=== PATIENT | female | born 1955 | race Caucasian/White ===

== ENCOUNTER 2016-09-03 07:30 | Inpatient (IN) ==
[2016-08-28 12:05] LABS: Basophils # (Auto) 0 K/mcL (0.0-0.3); Basophils % (Auto) 0.6 % (0.0-2.0); Eosinophils # (Auto) 0.1 K/mcL (0.0-0.7); Eosinophils % (Auto) 2.1 % (0.0-7.0); Granulocytes % (Auto) 58.1 % (38.0-78.0); Lymphocytes # (Auto) 1.3 K/mcL (1.5-4.8); Lymphocytes % (Auto) 27.8 % (15.5-49.0); Mean Cell Volume 92.3 fL (80.0-100.0); Mean Corpuscular HGB Conc 32.1 g/dL (31.0-36.0); Mean Corpuscular Hemoglobin 29.6 pg (26.0-34.0); Monocytes # (Auto) 0.5 K/mcL (0.1-0.9); Monocytes % (Auto) 11.4 % (1.0-9.0); Platelet Count 277 K/mcL (140-440); RBC 4.68 M/mcL (4.00-5.20); Red Cell Distribution Width 14.4 % (11.5-14.5)
[2016-08-28 12:06] LABS: Blood Urea Nitrogen 10 mg/dl (6-20)
[2016-08-28 12:07] LABS: Appearance,Urine CLEAR; Bilirubin,Urine NEG (NEG); Color,Urine STRAW; Glucose,Urine (UA) NEGATIVE (NEG); Leukocyte Esterase,Urine NEG /uL (NEG); Nitrate,Urine NEG (NEG); Protein,Urine NEG (NEG); Specific Gravity,Urine 1.004 (1.000-1.035); Urine Blood NEG mg/dL (<0.03); Urobilinogen,Urine NEG (NEG)
[~2016-09-03 07:30] MED LIST: CELECOXIB 200 MG CAPSULE PO SCH; KETOROLAC 30 MG, ROPIVACAINE HCL/PF 49.5 ML, EPINEPHrine 0.5 MG, 0.9 % SODIUM CHLORIDE ... IJ SCH; PREGABALIN 150 MG CAPSULE PO SCH; ceFAZolin 1 GM VIAL IV SCH; oxyCODONE 10 MG TAB.ER.12H PO SCH
[2016-09-03] MEDS ORDERED: TRANEXAMIC ACID 1,000 MG/10 ML VIAL IV ONE ×2 (13:45→15:16)
[2016-09-03] MEDS ORDERED: fentaNYL 100 MCG/2 ML VIAL IV ONE (13:45)
[2016-09-03] MEDS ORDERED: PROPOFOL 200 MG/20 ML VIAL IV ONE (13:45)
[2016-09-03] MEDS ORDERED: LIDOCAINE HCL/PF 100 MG/5 ML SYRINGE IV ONE (13:45)
[2016-09-03] MEDS ORDERED: ROPIVACAINE HCL/PF 30 ML VIAL IJ ONE (13:45)
[2016-09-03] MEDS ORDERED: ONDANSETRON 4 MG/2 ML VIAL IV ONE (13:45)
[2016-09-03] MEDS ORDERED: MIDAZOLAM 2 MG/2 ML VIAL IV ONE (13:45)
[2016-09-03] MEDS ORDERED: DEXAMETHASONE 10 MG/ML VIAL IV ONE (13:45)
[2016-09-03] MEDS ORDERED: IPRATROPIUM/ALBUTEROL 3 ML AMPUL.NEB NEB PRN (14:57)
[2016-09-03] MEDS ORDERED: ePHEDrine 50 MG/ML AMPUL IV PRN (14:57)
[2016-09-03] MEDS ORDERED: ATROPINE SULFATE 0.4 MG/ML VIAL IV PRN (14:57)
[2016-09-03] MEDS ORDERED: METOPROLOL TARTRATE 5 MG/5 ML VIAL IV PRN (14:57)
[2016-09-03] MEDS ORDERED: fentaNYL 100 MCG/2 ML VIAL IV PRN (14:57)
[2016-09-03] MEDS ORDERED: NALOXONE HCL 0.4 MG/ML VIAL IV PRN (14:57)
[2016-09-03] MEDS ORDERED: HYDROmorphone 2 MG/ML SYRINGE IV PRN (14:57)
[2016-09-03] MEDS ORDERED: diphenhydrAMINE 50 MG/ML VIAL IV PRN (14:57)
[2016-09-03] MEDS ORDERED: FLUMAZENIL 0.1 MG/ML ML IV PRN (14:57)
[2016-09-03] MEDS ORDERED: ONDANSETRON 4 MG/2 ML VIAL IV PRN ×2 (14:57→15:16)
[2016-09-03] MEDS ORDERED: BENZOCAINE/MENTHOL 1 LOZENGE PO PRN ×2 (14:57→15:16)
[2016-09-03] MEDS ORDERED: MEPERIDINE 25 MG/ML SYRINGE IV PRN (14:57)
[2016-09-03] MEDS ORDERED: METHOCARBAMOL 1,000 MG/10 ML VIAL IV PRN (14:57)
[2016-09-03] MEDS ORDERED: LACTATED RINGERS 1,000 ML IV SCH (15:00)
[2016-09-03] MEDS ORDERED: FLEETS ADULT ENEMA PR PRN (15:16)
[2016-09-03] MEDS ORDERED: BISACODYL 10 MG SUPP.RECT PR PRN (15:16)
[2016-09-03] MEDS ORDERED: MAGNESIUM HYDROXIDE 30 ML ORAL.SUSP PO PRN (15:16)
[2016-09-03] MEDS ORDERED: POLYETHYLENE GLYCOL 3350 17 GM PACKET PO PRN (15:16)
--- NOTE | 2016-09-03 15:27 | Brief Operative Note ---
Date of procedure: 09/03/16 Pre-op diagnosis: Left knee DJD Post-op diagnosis: same Procedure: Left TKA Grafts/Implants: Yes (Dusty Triathlon CR 2 femur, 2 tibia, 9 insert, 31 patella) Anesthesia: spinal, GLMA Findings: above Complications: none Surgeon: Bairon Sharma Sailing Master: Dimitrios Parikh Estimated blood loss (cc): 30 Specimens Removed/Pathology: none sent Condition: stable Disposition: PACU
--- NOTE | 2016-09-03 16:10 | XRay Report ---
CLINICAL INFORMATION: Postop total knee prostheses COMPARISON: None. FINDINGS: Total hip prostheses is anatomically aligned. There are no osseous abnormalities. Periarticular gas and soft tissue density as expected. IMPRESSION: Negative Interpreted and Authenticated by: Richie Cordova 09/03/16
[2016-09-03] MEDS: 0.9 % SODIUM CHLORIDE 1,000 ML IV SCH (17:11)
[2016-09-03] MEDS: KETOROLAC 15 MG/ML VIAL IV SCH (17:23)
[2016-09-03] MEDS ORDERED: SENNOSIDES 1 TABLET PO SCH (21:00)
[2016-09-03] MEDS: ceFAZolin 1 GM VIAL IV SCH (21:32)
[2016-09-03] MEDS: DOCUSATE SODIUM 100 MG CAPSULE PO SCH (21:36)
[2016-09-03] MEDS: 0.9 % SODIUM CHLORIDE 10 ML SYRINGE IV SCH (22:09)
[2016-09-04] MEDS: KETOROLAC 15 MG/ML VIAL IV SCH ×2 (00:05→05:46)
[2016-09-04] MEDS: ASPIRIN 325 MG ENTERIC COATED TABLET PO SCH ×2 (00:41→08:46)
[2016-09-04] MEDS: HYDROcodone/APAP 5/325MG TABLET PO PRN ×2 (00:42→08:33)
[2016-09-04] MEDS: 0.9 % SODIUM CHLORIDE 1,000 ML IV SCH ×2 (00:43→05:46)
[2016-09-04] MEDS: ceFAZolin 1 GM VIAL IV SCH (05:46)
[2016-09-04] MEDS: 0.9 % SODIUM CHLORIDE 10 ML SYRINGE IV SCH (06:10)
--- NOTE | 2016-09-04 08:00 | Discharge Summary ---
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 Chief Complaint: [] Discharge date: 09/04/16 Hospitalization Hospital course: Pt admitted for total knee arthroplasty. After procedure pt was transferred to floor for iv pain meds. abx, and PT. pt discharged post-op day 1. Discharge diagnosis: L knee osteoarthrosis Exam - Exam Clean and dry: Yes Weight bearing status: as tolerated Ortho Discharge - TKA - Patient Instructions Diet: Regular Diet Activity: activity as tolerated Total Knee Protocol: For Total Knee: Start ROM SERA with stationary bike or rocking chair. Work on gaining full extension of knee. Posterior dislocation precautions provided. Hip abductor strengthening and gait training instructions provided. Apply Cryocuff as instructed. Dressing Care: May shower in 2 days - Follow Up Plan Disposition: Home, Self-Care Prognosis: Good Rehab Potential: Good Overall status at discharge: patient is progressing back to baseline - Orders For Discharge Prescriptions: Aspirin [Ecotrin] 325 mg PO BID #60 tab.ec HYDROcodone/APAP 5/325MG [[place] 5/325Mg] 1 tab PO Q4HP PRN #60 tablet PRN Reason: Pain Pending Studies Resuscitation Status Full Code Diet Regular Diet Start ThuSep 03 Dinner Acetaminophen/Hydrocodone Bitart ([place] 5/325mg) 0 tab PO Q4HP PRN PRN Reason: Pain Last Admin: 09/04/16 00:42 Dose: 0.5 tab Aspirin (Ecotrin) 325 mg PO BID [facility] Last Admin: 09/04/16 00:41 Dose: 325 mg Docusate Sodium (Colace) 100 mg PO BID [facility] Last Admin: 09/03/16 21:36 Dose: Not Given Sodium Chloride (Sodium Chloride 0.9%) 1,000 mls @ 75 mls/hr IV .[id number] [facility] Last Admin: 09/04/16 05:46 Dose: Not Given Admin: 09/04/16 00:43 Dose: 75 mls/hr Infusion: 09/04/16 00:43 Dose: 75 mls/hr Admin: 09/03/16 17:11 Dose: 75 mls/hr Ketorolac Tromethamine (Toradol) 15 mg IV Q6 [facility] Stop: 09/05/16 12:01 Last Admin: 09/04/16 05:46 Dose: 15 mg Admin: 09/04/16 00:05 Dose: 15 mg Admin: 09/03/16 17:23 Dose: 15 mg Morphine Sulfate (Morphine) 0 mg IV Q1HP PRN PRN Reason: Pain Last Admin: 09/03/16 18:09 Dose: 1 mg Admin: 09/03/16 17:28 Dose: 0.5 mg Ondansetron HCl (Zofran) 4 mg IV Q4HP PRN PRN Reason: Nausea And Vomiting Last Admin: 09/03/16 21:40 Dose: 4 mg Senna (Senokot) 2 tab PO HS [facility] Last Admin: 09/03/16 21:36 Dose: Not Given Sodium Chloride (Saline Flush) 10 ml IV Q8 [facility] Last Admin: 09/04/16 06:10 Dose: Not Given Admin: 09/03/16 22:09 Dose: 10 ml Shift Summary 09/04/16 05:12 Shift Summary by Cecily Nunez Addendum entered by Cecily Nunez RN 09/04/16 05:17: Pt is voiding adequate amounts in the bathroom. Original Note: Had Left knee replacement. Hx of passing out from overmedication. For first part of shift, she was really drowsy with dizziness and nausea. SBP did go as low as 88 but after laying flat she maintained in the 90's. Received zofran once for nausea after getting up to the commode to void. By about 2300, pt was more awake, dizziness has decreased significantly and nausea was mostly gone. She was able to get up to commode without much complaint and after she ate some did take 1/2 tab of hydrocodone 5mg without any ill effects. She got up again this am and ambulated to the bathroom and out in zamorano without any difficulties. She has been in the CPM all night at 45 degrees, she finds that it helps with the pain and requests to stay in it. Up with minimal assist and FWW. Alert and oriented, hopes to get to go home today. Initialized on 09/04/16 05:12 - END OF NOTE
[2016-09-04] MEDS: DOCUSATE SODIUM 100 MG CAPSULE PO SCH (08:46)
[2016-09-04] MEDS ORDERED: LOSARTAN 25 MG TABLET PO SCH (09:00)
[2016-09-04] MEDS ORDERED: SPIRONOLACTONE 25 MG TABLET PO SCH (09:00)
--- NOTE | 2016-09-04 09:43 | Operative Note ---
DATE OF OPERATION: 09/03/2016 PREOPERATIVE DIAGNOSIS: Left knee advanced degenerative joint disease. POSTOPERATIVE DIAGNOSIS: Left knee advanced degenerative joint disease. PROCEDURE PERFORMED: Left total knee arthroplasty using a Dusty Triathlon cruciate retaining size 2 femoral component, size 2 tibial baseplate, a 9 mm X3 tibial insert with a 31 mm patellar button. SURGEON: Bairon Sharma MD. PLANT MECHANIC: Nazario Parikh PA-C. ANESTHESIA: Spinal plus general. DRAINS: None. SPECIMENS: Bone cuts, which were discarded. BLOOD LOSS: 50 mL. COMPLICATIONS: None. POSTOPERATIVE CONDITION: Stable. INDICATIONS FOR SURGERY: This is a 61-year-old female who over a year ago had undergone a right total knee arthroplasty by me and was pleased with her outcome. She had progressive worsening left knee pain with x-ray showing [id number] arthrosis. She elected to proceed with surgery on the left. FINDINGS AT SURGERY: She did have [id number] medial compartment osteoarthritis. Post implantation showed good overall limb alignment, patellar tracking, and joint stability. PROCEDURE IN DETAIL: The patient had been seen preoperatively. Informed consent had been obtained after discussion of risks and benefits of surgery. Risks including, but not limited to, bleeding, possibly requiring transfusion; infection, possibly requiring implant removal and prolonged IV antibiotics; injury to nerves, blood vessels or other surrounding structures; anesthetic risks; incomplete or no resolution of symptoms; stiffness, pain, clunking, swelling, weakness; DVT and pulmonary embolus risks; and the possibility of needing further surgery. She understood these risks and wished to proceed. Correct operative site was marked in preoperative holding, and the patient was taken to the operating room. General anesthesia was induced. Left lower extremity was carefully prepped and draped in normal sterile fashion, and a time-out was performed verifying patient name, operative site, and plan. An Esmarch was used to exsanguinate the extremity and tourniquet was inflated. Midline incision was made with a scalpel through skin and subcutaneous tissue and then a medial parapatellar arthrotomy made. Subperiosteal exposure was done of the anterior medial tibia and the distal anterior cortex of the femur. The retropatellar fat pad was excised, as well as the anterior horns of the menisci, and the ACL was transected. Drill hole was made in the distal femur. Flexible IM nhung was passed. This was pushed posteriorly and then our distal cutting block was pinned into place with a 5 degree valgus cut angle and an 8 mm depth of resection. Oscillating tip saw was used to make our distal femoral cut, and the bone cuts appeared to be of appropriate thickness. We went ahead and removed our cutting block. We marked our Whitesides line and epicondylar axis. The sizer block was then pinned into place. She sized between a 2 and a 3. It took 5 degrees of external rotation to match her anatomy. We went ahead with the 4-in-1 block size 3 and [address]. We made our anterior cut, and this appeared to be significantly proud so we went ahead and removed this, downsized to a 4-in-1 block size 2. We recut our anterior cut, and this was flush with our anterior cortex. There was no notching. We then went ahead and cut our posterior and chamfer cuts. The tibia was then subluxed forward and posterior horn of the menisci removed. A drill hole was made in the ACL footprint and then an IM nhung was passed down the tibia shaft. We stylused 9 mm off of the lateral side. This was the more normal side. We pinned this block into place with 3 degree posterior slope. We made our tibial cut, and it came out underneath cartilage on both sides. We went ahead and sized this to a size 2 based off of coverage laterally. We externally rotated it as bone coverage would allow, pinned this into place, and then used the keel punch to prepare. We removed this and placed a keeled tibial trial. Femur was then elevated and posterior osteophytes removed. Femoral component trial was then impacted. This was placed flush with the lateral cortex and pinned. We drilled our peg holes and then placed a 9 tibial insert trial. We went ahead and took the knee through range of motion, and it was stable with good range of motion. We measured our patella and then freehand cut. We ended up removing 9 mm of bone, and then sized this to a 31 which we medialized maximally. Holes were drilled and then a trial placed. Limited lateral facetectomy was performed. We then checked our patellar tracking, and it tracked nice and flat without any tilt or subluxation. We then removed our trial implants. Definitive implants were opened. Antibiotic cement was mixed. We irrigated Irrisept. After waiting a minute we then pulse lavaged copiously and then used the CO2 gun to clean and dry the cancellous bone surfaces. Antibiotic cement was placed on the cut bone surfaces. The tibia was cemented first followed by the femur. Excess cement was removed. A 9 trial insert was impacted, and the knee was taken into extension. The final excess cement was removed, and the patella was cemented. Irrisept was irrigated into the joint, and then we injected our pain cocktail into the pericapsular and superficial tissues. We then irrigated copiously with pulse lavage. Once cement had fully hardened, we flexed the knee up, removed the trial insert. We went ahead and opened a 9 X3 tibial insert. The remaining pain cocktail was injected in the posterior medial capsule, and the definitive implant was impacted after first irrigating some Irrisept into the tray. We then placed the knee over a bump. Interrupted #1 Vicryl [id number] were used after copiously pulse lavaging. These were used to close around the patella, running #1 Vicryl for patellar tendon and quad tendon. Final Irrisept and then after a minute pulse lavage and then 2-0 Monocryl was used for subcutaneous and urban for skin. Xeroform sterile dressings were applied and tourniquet was released. The patient was awakened, extubated, and transferred to recovery in stable condition. YAMILETH:kyle Job ID: [id number] Doc ID: [id number] Bairon Sharma MD
== END 2016-09-04 11:05 | disposition home or self-care (01) | DRG 470 ==
LOC: MEDSUR 09:46
PROVIDERS: ADMIT Orthopaedic Surgery; ATTEND Orthopaedic Surgery